=== PATIENT | female | born 1970 | race African-American/Black ===

== ENCOUNTER 2024-03-28 00:59 | Emergency (ER) | payer SELFPAY ==
[~2024-03-28] VITALS: Ht 177.8 cm; Wt 104.0 kg
[2024-03-28 01:26] VITALS: O2SAT 97
[2024-03-28] MEDS ORDERED: HYDROCODONE/ACETAMINOPHEN 5/325MG TABLET PO ONE (04:30)
[2024-03-28] MEDS: HYDROCODONE/ACETAMINOPHEN 5/325MG TABLET PO NR (04:42)
[2024-03-28] MEDS ORDERED: CLIN-116 MT (04:55)
[2024-03-28] MEDS ORDERED: IBUP-2029 MT (04:55)
[2024-03-28 05:44] VITALS: BP 155/96; PULSE 90; RESP 18; TEMP 36.61404; O2SAT 98
== END 2024-03-28 05:45 | disposition home or self-care (01) ==
LOC: ER 00:59
DX: K02.9 Dental caries, unspecified (principal); I10 Essential (primary) hypertension; Z98.890 Other specified postprocedural states
CPT/HCPCS: 93005; 99283